=== PATIENT | male | born 1980 | race African-American/Black ===

== ENCOUNTER 2023-01-05 16:06 | Emergency (ER) | payer OTHER ==
[~2023-01-05] VITALS: Ht 180.3 cm; Wt 87.0 kg
[2023-01-05 16:12] VITALS: O2SAT 100
[2023-01-05] MEDS ORDERED: AMOX-494 MT ×2 (16:38)
[2023-01-05 17:18] VITALS: BP 135/85; PULSE 59; RESP 16; TEMP 98.5
[2023-01-06] MEDS ORDERED: IBUP-2030 PO ×3 (06:36→06:38)
[2023-01-06] MEDS ORDERED: AMOX1TAB16 PO ×3 (06:36→06:38)
== END 2023-01-05 17:18 | disposition home or self-care (01) ==
LOC: ER 16:06
DX: K08.89 Other specified disorders of teeth and supporting structures (principal); Z98.890 Other specified postprocedural states
CPT/HCPCS: 99283

== ENCOUNTER 2023-01-06 05:28 | Emergency (ER) | payer OTHER ==
[~2023-01-06] VITALS: Ht 177.8 cm; Wt 91.0 kg
[~2023-01-06 05:28] MED LIST: AMOX-494 MT
[2023-01-06 05:45] VITALS: BP 145/78; O2SAT 100
[2023-01-06] MEDS ORDERED: IBUP-2030 PO ×3 (06:36→06:38)
[2023-01-06] MEDS ORDERED: AMOX1TAB16 PO ×3 (06:36→06:38)
[2023-01-06 06:47] VITALS: PULSE 55; RESP 18; TEMP 98.5
== END 2023-01-06 06:48 | disposition home or self-care (01) ==
LOC: ER 05:28
DX: K04.7 Periapical abscess without sinus (principal); Z76.0 Encounter for issue of repeat prescription; Z98.890 Other specified postprocedural states
CPT/HCPCS: 99281; 99283

== ENCOUNTER 2023-10-22 21:21 | Emergency (ER) | payer OTHER ==
[~2023-10-22] VITALS: Ht 177.8 cm; Wt 91.0 kg
[~2023-10-22 21:21] MED LIST changes: -AMOX-494 MT; +AMOX1TAB16 PO; +IBUP-2030 PO
[2023-10-22 21:35] VITALS: BP 146/85; TEMP 97.9; O2SAT 98
[2023-10-22 21:36] VITALS: PULSE 96; RESP 18
== END 2023-10-22 22:44 | disposition left against medical advice (07) ==
LOC: ER 21:21
DX: R07.89 Other chest pain (principal); Z53.21 Procedure and treatment not carried out due to patient leaving prior to being seen by health care provider

== ENCOUNTER 2023-10-24 20:58 | Emergency (ER) | payer OTHER ==
[~2023-10-24] VITALS: Ht 180.3 cm; Wt 97.0 kg
[2023-10-24 21:19] VITALS: BP 109/78; PULSE 106; RESP 16; TEMP 98.4; O2SAT 98
[2023-10-25] MEDS: FLUORESCEIN SODIUM 1MG/STRIP BOTHEYE NR (00:46)
[2023-10-25] MEDS: TETRACAINE 0.5% OPHTH DROPS 4ML BOTHEYE NR (00:46)
[2023-10-25] MEDS ORDERED: TRIMO RIGHTEYE (01:06)
== END 2023-10-25 01:26 | disposition home or self-care (01) ==
LOC: ER 20:58
DX: T15.81XA Foreign body in other and multiple parts of external eye, right eye, initial encounter (principal); H10.9 Unspecified conjunctivitis; X58.XXXA Exposure to other specified factors, initial encounter; Y93.89 Activity, other specified; Y92.89 Other specified places as the place of occurrence of the external cause; Y99.8 Other external cause status
CPT/HCPCS: 99283